=== PATIENT | male | born 1965 | race Caucasian/White ===

== ENCOUNTER 2017-12-10 12:41 | Emergency (ER) | payer OTHER ==
[2017-12-10] MEDS: LIDOCAINE 1% (MDV) 20 ML INJ SC (14:40)
== END 2017-12-10 16:02 | disposition home or self-care (01) ==
LOC: FTE 12:41
DX: L02.212 Cutaneous abscess of back [any part, except buttock and flank] (principal)
CPT/HCPCS: 10060; 99284-25